=== PATIENT | female | born 1940 | race Caucasian/White ===

== ENCOUNTER 2018-07-28 13:24 | Inpatient (IN) ==
[2018-07-28] MEDS ORDERED: ALBUTEROL/IPRATROPIUM 3 ML NEB RESP TX STA (14:29)
[2018-07-28] MEDS ORDERED: SODIUM CHLORIDE 0.9% 500 ML IV STA (14:29)
[2018-07-28] MEDS ORDERED: methylPREDNISolone SOD SUC 125 MG/2 ML VIAL IV STA (14:29)
[2018-07-28] MEDS ORDERED: LEVOFLOXACIN 750 MG TABLET PO STA (14:29)
[2018-07-28 14:51] LABS: Albumin 3.3 G/DL (3.4-5.0); Bilirubin,Total 0.6 MG/DL (0.2-1.0); Calcium 8.8 MG/DL (8.5-10.1); Osmolality,Calculated 231.9 MOS/KG (273-304); Potassium 3.8 MMOL/L (3.5-5.1); Total Protein 7.9 G/DL (6.4-8.3)
[2018-07-28 15:12] LABS: Basophils % 0.3 % (0.0-0.8); Eosinophils % 0.1 % (0.00-10.9); Hematocrit 41.6 VOL% (35.7-47.0); Hemoglobin 14.3 GM/DL (12.0-16.0); Immature Granulocytes % 0.8 %; Immature Granulocytes Absolute 0.08 #; Lymphocytes % 9.5 % (21.3-54.2); Mean Corpuscular HGB Conc 34.4 GM/DL (32-36); Mean Corpuscular Hemoglobin 30 PG (27-34); Mean Corpuscular Volume 85.8 FL (87-102); Mean Platelet Volume 8.9 FL (9.6-12.0); Monocytes # 0.6 10*3/uL (0.11-0.8); Monocytes % 5.7 % (1.7-12.7); Neutrophils # 8.6 10*3/uL (1.4-7.4); Neutrophils % 83.6 % (38.7-73.9); Platelet Count 395 T/CUMM (130-400); Red Blood Count 4.85 MC/CUMM (3.8-5.5); Red Cell Distribution Width 11.6 % (9.3-17.3); White Blood Count 10.2 T/CUMM (4-12)
[2018-07-28] MEDS ORDERED: LEVOFLOXACIN INJ 750 MG in PREMIX 1 EACH IV STA (15:27)
[2018-07-28] MEDS ORDERED: ACETAMINOPHEN 325 MG TABLET PO PRN (16:20)
[2018-07-28] MEDS ORDERED: ALBUTEROL 2.5 MG/3 ML NEB RESP TX PRN (16:23)
[2018-07-28 16:25] LABS: Platelet Estimate Normal
[2018-07-28] MEDS ORDERED: ENOXAPARIN 30 MG/0.3 ML SYRINGE SUBCUT SCH (16:30)
[2018-07-28 16:53] LABS: ABG Base Excess 1.2 MMOL/L (-2.5-2.5); ABG HCO3 25.3 MMOL/L (20-26); ABG Oxygen Saturation 91.6 % (95-100); ABG PH 7.335 (7.35-7.45); ABG PO2 63.3 MM HG (80-95); ABG TCO2 24.7 MMOL/L (23-27)
[2018-07-28 16:57] LABS: Thyroid Stimulating Hormone 1.71 uIU/ml (0.358-3.74)
[2018-07-28] MEDS ORDERED: MAGNESIUM SULF RIDER 4 GM in PREMIX 1 EACH IV ONE (18:06)
[2018-07-28] MEDS: methylPREDNISolone SOD SUC 40 MG/1 ML VIAL IV SCH (18:32)
[2018-07-28] MEDS: LEVOFLOXACIN INJ 500 MG in PREMIX 1 EACH IV SCH (18:32)
[2018-07-28] MEDS: SODIUM CHLORIDE 0.9% 1,000 ML IV SCH (18:33)
[2018-07-28] MEDS: hydrALAZINE 20 MG/1 ML VIAL IV PRN (19:32)
[2018-07-28] MEDS: ALBUTEROL/IPRATROPIUM 3 ML NEB RESP TX SCH (19:45)
[2018-07-28] MEDS: BUDESONIDE 0.5 MG/2 ML NEB RESP TX SCH (19:45)
[2018-07-28] MEDS: NICOTINE 21 MG/24 HR PATCH TRANSDERM SCH (20:42)
[2018-07-28] MEDS: TERAZOSIN 2 MG CAPSULE PO SCH (20:44)
[2018-07-28] MEDS: guaiFENesin/DM ER 600-30 MG TABLET PO SCH (20:44)
[2018-07-28] MEDS: CHOLECALCIFEROL 1,000 UNIT TABLET PO SCH (20:44)
[2018-07-28] MEDS: LOSARTAN 50 MG TABLET PO SCH (20:45)
[2018-07-28] MEDS: NEBIVOLOL 5 MG TABLET PO SCH (20:45)
[2018-07-28] MEDS ORDERED: buPROPion 100 MG TABLET PO SCH (21:00)
[2018-07-28] MEDS: CLORAZEPATE 3.75 MG TABLET PO PRN (21:35)
[2018-07-28] MEDS: PIPERACILLIN/TAZOBACTAM 3,375 MG in SODIUM CHLORIDE 0.9% 100 ML IV SCH (23:11)
[2018-07-29] MEDS: methylPREDNISolone SOD SUC 40 MG/1 ML VIAL IV SCH ×4 (00:52→23:39)
[2018-07-29] MEDS: ALBUTEROL/IPRATROPIUM 3 ML NEB RESP TX SCH ×4 (01:22→19:08)
[2018-07-29 04:47] LABS: Hemoglobin 12.6 GM/DL (12.0-16.0); Immature Granulocytes % 0.5 %; Immature Granulocytes Absolute 0.03 #; Lymphocytes # 0.5 10*3/uL (1.4-4.0); Lymphocytes % 7.4 % (21.3-54.2); Mean Corpuscular HGB Conc 33.2 GM/DL (32-36); Mean Corpuscular Hemoglobin 28 PG (27-34); Mean Corpuscular Volume 85.8 FL (87-102); Mean Platelet Volume 8.2 FL (9.6-12.0); Monocytes # 0.1 10*3/uL (0.11-0.8); Monocytes % 1.4 % (1.7-12.7); Neutrophils # 5.9 10*3/uL (1.4-7.4); Neutrophils % 90.7 % (38.7-73.9); Platelet Count 294 T/CUMM (130-400); Red Blood Count 4.43 MC/CUMM (3.8-5.5); Red Cell Distribution Width 11.5 % (9.3-17.3); White Blood Count 6.5 T/CUMM (4-12)
[2018-07-29 05:04] LABS: Albumin 2.8 G/DL (3.4-5.0); Bilirubin,Total 0.4 MG/DL (0.2-1.0); Calcium 8.5 MG/DL (8.5-10.1); Osmolality,Calculated 237.5 MOS/KG (273-304); Potassium 4.1 MMOL/L (3.5-5.1); Risk Ratio 2.28; Total Protein 6.5 G/DL (6.4-8.3); VLDL CHOLESTEROL 10.4 MG/DL
[2018-07-29 05:15] LABS: Band Neutrophils 1 % (0-10); Lymphocytes 13 % (20-55); Platelet Estimate Normal; Polychromasia Few; Reactive Lymphocytes 2+; Segmented Neutrophils 84 % (50-85); Total Cells Counted 100
[2018-07-29] MEDS: PIPERACILLIN/TAZOBACTAM 3,375 MG in SODIUM CHLORIDE 0.9% 100 ML IV SCH ×3 (06:35→23:41)
[2018-07-29] MEDS: BUDESONIDE 0.5 MG/2 ML NEB RESP TX SCH ×2 (07:35→19:08)
[2018-07-29] MEDS: guaiFENesin/DM ER 600-30 MG TABLET PO SCH ×2 (08:34→21:25)
[2018-07-29] MEDS: hydrALAZINE 20 MG/1 ML VIAL IV PRN (08:34)
[2018-07-29] MEDS: NICOTINE 21 MG/24 HR PATCH TRANSDERM SCH (08:34)
[2018-07-29] MEDS ORDERED: Finasteride [Propecia] 1 MG PO SCH (09:00)
[2018-07-29] MEDS ORDERED: NISOLDIPINE 8.5 MG PO SCH (09:00)
[2018-07-29] MEDS ORDERED: buPROPion SR 150 MG TABLET PO SCH (09:00)
[2018-07-29] MEDS ORDERED: FUROSEMIDE 40 MG/4 ML VIAL IV ONE (11:14)
[2018-07-29 13:56] LABS: Apearance,Urine CLEAR (Clear); Bilirubin,Urine Negative (Negative); Blood, Urine Negative (Negative); Glucose,Urine (UA) Negative (Negative); Hyaline Casts,Urine 4 /LPF (0-3); Ketones,Urine Negative (Negative); Mucus,Urine Occasional /LPF (Occasional); Nitrite,Urine Negative (Negative); Protein,Urine 30 MG/DL; RBC,Urine 1 /HPF (0-4); Squamous Epithelial Cell,Urine Occasional /HPF (0-10); Urine Color Yellow (Yellow); Urine Specific Gravity 1.028 (1.001-1.035); Urine Urobilinogen < 2.0 EU/DL (0.2-1.0); WBC,Urine 1 /HPF (0-6)
[2018-07-29] MEDS: ENOXAPARIN 40 MG/0.4 ML SYRINGE SUBCUT SCH (15:39)
[2018-07-29] MEDS: LEVOFLOXACIN INJ 500 MG in PREMIX 1 EACH IV SCH (15:39)
[2018-07-29] MEDS: NEBIVOLOL 5 MG TABLET PO SCH (21:19)
[2018-07-29] MEDS: LOSARTAN 50 MG TABLET PO SCH (21:21)
[2018-07-29] MEDS: BENZONATATE 100 MG CAPSULE PO SCH (21:22)
[2018-07-29] MEDS: TERAZOSIN 2 MG CAPSULE PO SCH (21:24)
[2018-07-29] MEDS: CHOLECALCIFEROL 1,000 UNIT TABLET PO SCH (21:25)
[2018-07-30] MEDS: ALBUTEROL/IPRATROPIUM 3 ML NEB RESP TX SCH ×4 (02:07→19:35)
[2018-07-30 05:40] LABS: Basophils % 0.1 % (0.0-0.8); Hematocrit 35.6 VOL% (35.7-47.0); Hemoglobin 11.9 GM/DL (12.0-16.0); Immature Granulocytes % 0.6 %; Immature Granulocytes Absolute 0.06 #; Lymphocytes # 0.5 10*3/uL (1.4-4.0); Lymphocytes % 4.8 % (21.3-54.2); Mean Corpuscular HGB Conc 33.4 GM/DL (32-36); Mean Corpuscular Hemoglobin 29 PG (27-34); Mean Corpuscular Volume 86.4 FL (87-102); Mean Platelet Volume 8.5 FL (9.6-12.0); Monocytes # 0.4 10*3/uL (0.11-0.8); Monocytes % 4.2 % (1.7-12.7); Neutrophils # 8.7 10*3/uL (1.4-7.4); Neutrophils % 90.3 % (38.7-73.9); Platelet Count 343 T/CUMM (130-400); Red Blood Count 4.12 MC/CUMM (3.8-5.5); White Blood Count 9.6 T/CUMM (4-12)
[2018-07-30] MEDS: PIPERACILLIN/TAZOBACTAM 3,375 MG in SODIUM CHLORIDE 0.9% 100 ML IV SCH ×3 (06:06→23:38)
[2018-07-30 06:07] LABS: Band Neutrophils 3 % (0-10); Hypochromasia 1+; Lymphocytes 6 % (20-55); Platelet Estimate Adequate; Segmented Neutrophils 84 % (50-85); Total Cells Counted 100
[2018-07-30 06:09] LABS: Albumin 2.8 G/DL (3.4-5.0); Bilirubin,Total 0.5 MG/DL (0.2-1.0); Osmolality,Calculated 247.9 MOS/KG (273-304); Total Protein 6.2 G/DL (6.4-8.3)
[2018-07-30] MEDS: BUDESONIDE 0.5 MG/2 ML NEB RESP TX SCH ×2 (07:00→19:35)
[2018-07-30] MEDS ORDERED: MAGNESIUM SULF RIDER 2 GM in PREMIX 1 EACH IV ONE (07:03)
[2018-07-30] MEDS ORDERED: FUROSEMIDE 40 MG/4 ML VIAL IV ONE (08:22)
[2018-07-30] MEDS: SODIUM CHLORIDE 0.9% 1,000 ML IV SCH (08:45)
[2018-07-30] MEDS: NICOTINE 21 MG/24 HR PATCH TRANSDERM SCH (09:06)
[2018-07-30] MEDS: methylPREDNISolone SOD SUC 40 MG/1 ML VIAL IV SCH ×3 (09:06→23:32)
[2018-07-30] MEDS: BENZONATATE 100 MG CAPSULE PO SCH ×3 (09:07→20:16)
[2018-07-30] MEDS: guaiFENesin/DM ER 600-30 MG TABLET PO SCH ×2 (09:07→20:16)
[2018-07-30] MEDS: ENOXAPARIN 40 MG/0.4 ML SYRINGE SUBCUT SCH (16:33)
[2018-07-30] MEDS: LEVOFLOXACIN INJ 500 MG in PREMIX 1 EACH IV SCH (16:33)
[2018-07-30] MEDS: NEBIVOLOL 5 MG TABLET PO SCH (20:16)
[2018-07-30] MEDS: CHOLECALCIFEROL 1,000 UNIT TABLET PO SCH (20:16)
[2018-07-30] MEDS: LOSARTAN 50 MG TABLET PO SCH (20:16)
[2018-07-30] MEDS: TERAZOSIN 2 MG CAPSULE PO SCH (20:16)
[2018-07-31] MEDS: CLORAZEPATE 3.75 MG TABLET PO PRN ×2 (00:22→21:12)
[2018-07-31] MEDS: ALBUTEROL/IPRATROPIUM 3 ML NEB RESP TX SCH ×4 (01:25→18:50)
[2018-07-31 05:11] LABS: Hematocrit 37.8 VOL% (35.7-47.0); Hemoglobin 12.3 GM/DL (12.0-16.0); Immature Granulocytes % 0.7 %; Immature Granulocytes Absolute 0.07 #; Lymphocytes # 0.4 10*3/uL (1.4-4.0); Lymphocytes % 3.9 % (21.3-54.2); Mean Corpuscular HGB Conc 32.5 GM/DL (32-36); Mean Corpuscular Hemoglobin 29 PG (27-34); Mean Corpuscular Volume 88.9 FL (87-102); Mean Platelet Volume 8.3 FL (9.6-12.0); Monocytes # 0.4 10*3/uL (0.11-0.8); Monocytes % 4.2 % (1.7-12.7); Neutrophils % 91.2 % (38.7-73.9); Platelet Count 350 T/CUMM (130-400); Red Blood Count 4.25 MC/CUMM (3.8-5.5); Red Cell Distribution Width 12.2 % (9.3-17.3); White Blood Count 9.9 T/CUMM (4-12)
[2018-07-31 05:32] LABS: Band Neutrophils 4 % (0-10); Lymphocytes 5 % (20-55); Metamyelocytes 2 %; Platelet Estimate Normal; Segmented Neutrophils 87 % (50-85); Total Cells Counted 100
[2018-07-31 05:37] LABS: Albumin 2.8 G/DL (3.4-5.0); Bilirubin,Total 0.6 MG/DL (0.2-1.0); Osmolality,Calculated 248.9 MOS/KG (273-304); Potassium 4.3 MMOL/L (3.5-5.1)
[2018-07-31] MEDS: PIPERACILLIN/TAZOBACTAM 3,375 MG in SODIUM CHLORIDE 0.9% 100 ML IV SCH ×3 (06:00→23:17)
[2018-07-31] MEDS: BUDESONIDE 0.5 MG/2 ML NEB RESP TX SCH ×2 (08:25→18:50)
[2018-07-31] MEDS: methylPREDNISolone SOD SUC 40 MG/1 ML VIAL IV SCH ×2 (09:45→17:07)
[2018-07-31] MEDS: guaiFENesin/DM ER 600-30 MG TABLET PO SCH ×2 (09:45→21:20)
[2018-07-31] MEDS: BENZONATATE 100 MG CAPSULE PO SCH ×3 (09:45→21:19)
[2018-07-31] MEDS: NICOTINE 21 MG/24 HR PATCH TRANSDERM SCH (09:46)
[2018-07-31] MEDS: MAGNESIUM CHLORIDE 64 MG TABLET PO SCH (09:52)
[2018-07-31] MEDS: ENOXAPARIN 40 MG/0.4 ML SYRINGE SUBCUT SCH (17:07)
[2018-07-31] MEDS: LEVOFLOXACIN 500 MG TABLET PO SCH (17:07)
[2018-07-31] MEDS: MELATONIN 3 MG TABLET PO SCH (21:12)
[2018-07-31] MEDS: NEBIVOLOL 5 MG TABLET PO SCH (21:17)
[2018-07-31] MEDS: TERAZOSIN 2 MG CAPSULE PO SCH (21:18)
[2018-07-31] MEDS: LOSARTAN 50 MG TABLET PO SCH (21:19)
[2018-07-31] MEDS: CHOLECALCIFEROL 1,000 UNIT TABLET PO SCH (21:21)
[2018-08-01] MEDS: ALBUTEROL/IPRATROPIUM 3 ML NEB RESP TX SCH ×4 (00:35→19:22)
[2018-08-01] MEDS: methylPREDNISolone SOD SUC 40 MG/1 ML VIAL IV SCH ×2 (00:52→09:52)
[2018-08-01 03:42] LABS: Hematocrit 38.3 VOL% (35.7-47.0); Hemoglobin 12.5 GM/DL (12.0-16.0); Mean Corpuscular HGB Conc 32.6 GM/DL (32-36); Mean Corpuscular Hemoglobin 29 PG (27-34); Mean Corpuscular Volume 88.5 FL (87-102); Red Blood Count 4.33 MC/CUMM (3.8-5.5); White Blood Count 8.2 T/CUMM (4-12)
[2018-08-01 03:43] LABS: Basophils % 0.1 % (0.0-0.8); Immature Granulocytes % 0.9 %; Immature Granulocytes Absolute 0.07 #; Lymphocytes # 0.4 10*3/uL (1.4-4.0); Lymphocytes % 4.9 % (21.3-54.2); Mean Platelet Volume 8.2 FL (9.6-12.0); Monocytes # 0.5 10*3/uL (0.11-0.8); Monocytes % 5.7 % (1.7-12.7); Neutrophils # 7.3 10*3/uL (1.4-7.4); Neutrophils % 88.4 % (38.7-73.9); Platelet Count 344 T/CUMM (130-400)
[2018-08-01 04:04] LABS: Albumin 2.7 G/DL (3.4-5.0); Bilirubin,Total 0.4 MG/DL (0.2-1.0); Osmolality,Calculated 248.9 MOS/KG (273-304); Potassium 4.5 MMOL/L (3.5-5.1); Total Protein 5.8 G/DL (6.4-8.3)
[2018-08-01 04:34] LABS: Band Neutrophils 1 % (0-10); Hypochromasia 1+; Lymphocytes 3 % (20-55); Platelet Estimate Adequate; Segmented Neutrophils 92 % (50-85); Total Cells Counted 100
[2018-08-01] MEDS: PIPERACILLIN/TAZOBACTAM 3,375 MG in SODIUM CHLORIDE 0.9% 100 ML IV SCH ×3 (06:27→22:44)
[2018-08-01] MEDS: BUDESONIDE 0.5 MG/2 ML NEB RESP TX SCH ×2 (07:10→19:22)
[2018-08-01] MEDS: MAGNESIUM CHLORIDE 64 MG TABLET PO SCH (09:50)
[2018-08-01] MEDS: BENZONATATE 100 MG CAPSULE PO SCH ×3 (09:51→20:40)
[2018-08-01] MEDS: NICOTINE 21 MG/24 HR PATCH TRANSDERM SCH (09:51)
[2018-08-01] MEDS: guaiFENesin/DM ER 600-30 MG TABLET PO SCH ×2 (09:52→20:40)
[2018-08-01] MEDS: busPIRone 5 MG TABLET PO SCH ×2 (12:12→20:38)
[2018-08-01] MEDS: LEVOFLOXACIN 500 MG TABLET PO SCH (16:13)
[2018-08-01] MEDS: ENOXAPARIN 40 MG/0.4 ML SYRINGE SUBCUT SCH (16:14)
[2018-08-01] MEDS ORDERED: BISACODYL 10 MG SUPP RECTAL PRN (18:34)
[2018-08-01] MEDS: hydrALAZINE 25 MG TABLET PO SCH (20:38)
[2018-08-01] MEDS: TERAZOSIN 2 MG CAPSULE PO SCH (20:40)
[2018-08-01] MEDS: MELATONIN 3 MG TABLET PO SCH (20:40)
[2018-08-01] MEDS: LOSARTAN 50 MG TABLET PO SCH (20:40)
[2018-08-01] MEDS: NEBIVOLOL 5 MG TABLET PO SCH (20:40)
[2018-08-01] MEDS: CHOLECALCIFEROL 1,000 UNIT TABLET PO SCH (20:45)
[2018-08-02] MEDS: ALBUTEROL/IPRATROPIUM 3 ML NEB RESP TX SCH ×3 (00:39→14:00)
[2018-08-02] MEDS: BUDESONIDE 0.5 MG/2 ML NEB RESP TX SCH (07:20)
[2018-08-02] MEDS: PIPERACILLIN/TAZOBACTAM 3,375 MG in SODIUM CHLORIDE 0.9% 100 ML IV SCH (07:27)
[2018-08-02] MEDS: MAGNESIUM CHLORIDE 64 MG TABLET PO SCH (08:46)
[2018-08-02] MEDS: BENZONATATE 100 MG CAPSULE PO SCH (08:47)
[2018-08-02] MEDS: hydrALAZINE 25 MG TABLET PO SCH (08:47)
[2018-08-02] MEDS: guaiFENesin/DM ER 600-30 MG TABLET PO SCH (08:47)
[2018-08-02] MEDS: NICOTINE 21 MG/24 HR PATCH TRANSDERM SCH (08:49)
[2018-08-02] MEDS: busPIRone 5 MG TABLET PO SCH (08:49)
[2018-08-02] MEDS ORDERED: DOCUSATE SODIUM 100 MG CAPSULE PO SCH ×2 (09:00→21:00)
[2018-08-02] MEDS ORDERED: predniSONE 20 MG TABLET PO SCH (09:00)
[2018-08-02 12:27] VITALS: BP 167/82
[2018-08-03] MEDS ORDERED: POLYETHYLENE GLYCOL POWDER 17 GM PACK PO SCH (09:00)
== END 2018-08-02 14:40 | disposition home or self-care (01) | DRG 190 ==
LOC: N.ED 13:24 → N.EDINP 16:20 → N.4E 16:51
PROVIDERS: ADMIT Hospitalist; ATTEND Hospitalist

== ENCOUNTER 2019-09-13 08:19 | Inpatient (IN) ==
[2019-09-13] MEDS ORDERED: cefTRIAXone 1,000 MG in SODIUM CHLORIDE 0.9% 100 ML IV STA (08:31)
[2019-09-13] MEDS ORDERED: methylPREDNISolone SOD SUC 125 MG/2 ML VIAL IV STA (08:31)
[2019-09-13] MEDS ORDERED: FUROSEMIDE 40 MG/4 ML VIAL IV STA (08:53)
[2019-09-13] MEDS ORDERED: ALBUTEROL 2.5 MG/3 ML NEB RESP TX SCH (09:00)
[2019-09-13 09:11] LABS: Basophils % 0.4 % (0.0-0.8); Eosinophils % 0.1 % (0.00-10.9); Hematocrit 44.4 VOL% (35.7-47.0); Hemoglobin 15.3 GM/DL (12.0-16.0); Immature Granulocytes % 1.1 %; Immature Granulocytes Absolute 0.12 #; Lymphocytes # 1.2 10*3/uL (1.4-4.0); Lymphocytes % 10.7 % (21.3-54.2); Mean Corpuscular HGB Conc 34.5 GM/DL (32-36); Mean Corpuscular Volume 87.4 FL (87-102); Mean Platelet Volume 8.7 FL (9.6-12.0); Monocytes % 7.9 % (1.7-12.7); Neutrophils % 79.8 % (38.7-73.9); Platelet Count 241 T/CUMM (130-400); Red Blood Count 5.08 MC/CUMM (3.8-5.5); Red Cell Distribution Width 11.5 % (9.3-17.3); White Blood Count 10.9 T/CUMM (4-12)
[2019-09-13 09:14] LABS: ABG HCO3 28.2 MMOL/L (20-26); ABG PCO2 66.6 MM HG (35-48); ABG PH 7.245 (7.35-7.45); ABG PO2 93.6 MM HG (80-95); ABG TCO2 30.3 MMOL/L (23-27)
[2019-09-13 09:20] LABS: PT Patient Result 10.6 SECS (9.6-12.2); Partial Thromboplastin Time 27.8 SECS (20.8-36.0)
[2019-09-13] MEDS ORDERED: ONDANSETRON 4 MG/2 ML VIAL IV STA (09:26)
[2019-09-13 09:39] LABS: Albumin 3.6 G/DL (3.4-5.0); Bilirubin,Total 0.8 MG/DL (0.2-1.0); Osmolality,Calculated 238.5 MOS/KG (273-304); Total Protein 6.5 G/DL (6.4-8.3)
[2019-09-13] MEDS ORDERED: ACETAMINOPHEN 325 MG TABLET PO PRN (10:48)
[2019-09-13 11:04] LABS: Apearance,Urine CLEAR (Clear); Bacteria,Urine Moderate /HPF (Few); Bilirubin,Urine Negative (Negative); Blood, Urine Small mg/dL (Negative); Glucose,Urine (UA) Negative (Negative); Ketones,Urine 20 mg/dL (Negative); Nitrite,Urine Negative (Negative); Protein,Urine 100 MG/DL; RBC,Urine 1 /HPF (0-4); Squamous Epithelial Cell,Urine Occasional /HPF (0-10); Urine Color Yellow (Yellow); Urine Specific Gravity 1.009 (1.001-1.035); Urine Urobilinogen < 2.0 EU/DL (0.2-1.0)
[2019-09-13] MEDS: ALBUTEROL/IPRATROPIUM 3 ML NEB RESP TX SCH ×4 (11:40→23:06)
[2019-09-13] MEDS: AZITHROMYCIN INJ 500 MG in SODIUM CHLORIDE 0.9% 250 ML IV SCH (12:35)
[2019-09-13] MEDS: ENOXAPARIN 40 MG/0.4 ML SYRINGE SUBCUT SCH (12:35)
[2019-09-13] MEDS: SODIUM CHLORIDE 0.9% 1,000 ML IV SCH (13:57)
[2019-09-13] MEDS ORDERED: methylPREDNISolone SOD SUC 40 MG/1 ML VIAL IV SCH (17:00)
[2019-09-13] MEDS: methylPREDNISolone SOD SUC 40 MG/1 ML VIAL IV SCH ×2 (17:53→22:02)
[2019-09-13] MEDS: NICOTINE 21 MG/24 HR PATCH TRANSDERM SCH (17:53)
[2019-09-13] MEDS: LOSARTAN 50 MG TABLET PO SCH (21:44)
[2019-09-13] MEDS: CHOLECALCIFEROL 1,000 UNIT TABLET PO SCH (21:44)
[2019-09-13] MEDS: NEBIVOLOL 5 MG TABLET PO SCH (21:45)
[2019-09-13] MEDS: amLODIPine 10 MG TABLET PO SCH (21:45)
[2019-09-13] MEDS: Finasteride [Propecia] 1 MG PO SCH (21:45)
[2019-09-14] MEDS: SODIUM CHLORIDE 0.9% 1,000 ML IV SCH ×4 (02:51→19:30)
[2019-09-14 03:02] LABS: Basophils % 0.1 % (0.0-0.8); Hematocrit 42.7 VOL% (35.7-47.0); Hemoglobin 14.3 GM/DL (12.0-16.0); Immature Granulocytes % 0.7 %; Immature Granulocytes Absolute 0.05 #; Lymphocytes # 0.8 10*3/uL (1.4-4.0); Lymphocytes % 11.2 % (21.3-54.2); Mean Corpuscular HGB Conc 33.5 GM/DL (32-36); Mean Corpuscular Volume 89.5 FL (87-102); Mean Platelet Volume 8.9 FL (9.6-12.0); Monocytes % 1.6 % (1.7-12.7); Neutrophils % 86.4 % (38.7-73.9); Platelet Count 239 T/CUMM (130-400); Red Blood Count 4.77 MC/CUMM (3.8-5.5); Red Cell Distribution Width 11.6 % (9.3-17.3); White Blood Count 6.7 T/CUMM (4-12)
[2019-09-14] MEDS: ALBUTEROL/IPRATROPIUM 3 ML NEB RESP TX SCH ×5 (03:15→20:18)
[2019-09-14 03:31] LABS: Calcium 8.2 MG/DL (8.5-10.1); Osmolality,Calculated 247.9 MOS/KG (273-304)
[2019-09-14] MEDS: methylPREDNISolone SOD SUC 40 MG/1 ML VIAL IV SCH ×4 (05:49→22:18)
[2019-09-14] MEDS: cefTRIAXone 1,000 MG in SYRINGE 1 EACH IV SCH (05:51)
[2019-09-14] MEDS: NICOTINE 21 MG/24 HR PATCH TRANSDERM SCH (08:23)
[2019-09-14] MEDS: ONDANSETRON 4 MG/2 ML VIAL IV PRN (08:33)
[2019-09-14] MEDS: ENOXAPARIN 40 MG/0.4 ML SYRINGE SUBCUT SCH (11:26)
[2019-09-14] MEDS: AZITHROMYCIN INJ 500 MG in SODIUM CHLORIDE 0.9% 250 ML IV SCH (12:50)
[2019-09-14 16:40] LABS: Apearance,Urine CLEAR (Clear); Bacteria,Urine Occasional /HPF (Few); Bilirubin,Urine Negative (Negative); Blood, Urine Small mg/dL (Negative); Glucose,Urine (UA) Negative (Negative); Hyaline Casts,Urine 8 /LPF (0-3); Ketones,Urine Negative (Negative); Mucus,Urine Occasional /LPF (Occasional); Nitrite,Urine Negative (Negative); Protein,Urine Negative; RBC,Urine 25 /HPF (0-4); Squamous Epithelial Cell,Urine Occasional /HPF (0-10); Urine Color Yellow (Yellow); Urine Specific Gravity 1.012 (1.001-1.035); Urine Urobilinogen < 2.0 EU/DL (0.2-1.0); WBC,Urine 2 /HPF (0-6)
[2019-09-14] MEDS: Finasteride [Propecia] 1 MG PO SCH (20:17)
[2019-09-14] MEDS: amLODIPine 10 MG TABLET PO SCH (20:18)
[2019-09-14] MEDS: LOSARTAN 50 MG TABLET PO SCH (20:18)
[2019-09-14] MEDS: CHOLECALCIFEROL 1,000 UNIT TABLET PO SCH (20:18)
[2019-09-14] MEDS: NEBIVOLOL 5 MG TABLET PO SCH (20:18)
[2019-09-15] MEDS: ALBUTEROL/IPRATROPIUM 3 ML NEB RESP TX SCH ×6 (01:23→19:32)
[2019-09-15] MEDS: methylPREDNISolone SOD SUC 40 MG/1 ML VIAL IV SCH ×3 (05:30→21:45)
[2019-09-15] MEDS: cefTRIAXone 1,000 MG in SYRINGE 1 EACH IV SCH (05:31)
[2019-09-15] MEDS: NICOTINE 21 MG/24 HR PATCH TRANSDERM SCH ×2 (08:35→21:46)
[2019-09-15 08:42] LABS: ABG Base Excess 2.1 MMOL/L (-2.5-2.5); ABG Oxygen Saturation 89.4 % (95-100); ABG PCO2 58.9 MM HG (35-48); ABG PH 7.317 (7.35-7.45); ABG PO2 56.3 MM HG (80-95); ABG TCO2 26.3 MMOL/L (23-27); Allen Test Positive; Pt O2 Delivery Device BIPAP
[2019-09-15 09:04] LABS: Alanine Aminotransferase 26 U/L (13-56); Albumin 3.1 G/DL (3.4-5.0); Alkaline Phosphatase 110 U/L (45-117); Aspartate Amino Transferase 13 U/L (0-37); Bilirubin,Total < 0.39 MG/DL (0.2-1.0); Blood Urea Nitrogen 29 MG/DL (7-18); Calcium 8.5 MG/DL (8.5-10.1); Estimated Glom Filtration Rate 94 ML/MIN; Glucose 136 MG/DL (74-106); Osmolality,Calculated 260.4 MOS/KG (273-304); Total Protein 6.3 G/DL (6.4-8.3)
[2019-09-15] MEDS: SODIUM CHLORIDE 0.9% 1,000 ML IV SCH (11:55)
[2019-09-15] MEDS: ENOXAPARIN 40 MG/0.4 ML SYRINGE SUBCUT SCH (12:28)
[2019-09-15] MEDS: AZITHROMYCIN INJ 500 MG in SODIUM CHLORIDE 0.9% 250 ML IV SCH (12:28)
[2019-09-15] MEDS ORDERED: NICOTINE 21 MG/24 HR PATCH TRANSDERM SCH (21:00)
[2019-09-15] MEDS: CHOLECALCIFEROL 1,000 UNIT TABLET PO SCH (21:46)
[2019-09-15] MEDS: amLODIPine 10 MG TABLET PO SCH (21:46)
[2019-09-15] MEDS: NEBIVOLOL 5 MG TABLET PO SCH (21:46)
[2019-09-15] MEDS: LOSARTAN 50 MG TABLET PO SCH (21:46)
[2019-09-15] MEDS: Finasteride [Propecia] 1 MG PO SCH (21:53)
[2019-09-15] MEDS: MELATONIN 3 MG TABLET PO PRN (22:28)
[2019-09-16] MEDS: ALBUTEROL/IPRATROPIUM 3 ML NEB RESP TX SCH ×7 (00:23→23:50)
[2019-09-16] MEDS: methylPREDNISolone SOD SUC 40 MG/1 ML VIAL IV SCH ×3 (03:18→21:00)
[2019-09-16] MEDS: SODIUM CHLORIDE 0.9% 1,000 ML IV SCH ×3 (03:22→19:00)
[2019-09-16] MEDS: cefTRIAXone 1,000 MG in SYRINGE 1 EACH IV SCH (05:33)
[2019-09-16] MEDS: NICOTINE 21 MG/24 HR PATCH TRANSDERM SCH ×2 (09:26→21:04)
[2019-09-16] MEDS: ENOXAPARIN 40 MG/0.4 ML SYRINGE SUBCUT SCH (16:49)
[2019-09-16] MEDS: AZITHROMYCIN INJ 500 MG in SODIUM CHLORIDE 0.9% 250 ML IV SCH (16:50)
[2019-09-16] MEDS: NEBIVOLOL 5 MG TABLET PO SCH (21:01)
[2019-09-16] MEDS: LOSARTAN 50 MG TABLET PO SCH (21:01)
[2019-09-16] MEDS: amLODIPine 10 MG TABLET PO SCH (21:02)
[2019-09-16] MEDS: Finasteride [Propecia] 1 MG PO SCH (21:04)
[2019-09-16] MEDS: CHOLECALCIFEROL 1,000 UNIT TABLET PO SCH (21:04)
[2019-09-16] MEDS: POLYETHYLENE GLYCOL POWDER 17 GM PACK PO SCH (22:25)
[2019-09-17] MEDS: DOCUSATE SODIUM 100 MG CAPSULE PO PRN (00:01)
[2019-09-17] MEDS: SODIUM CHLORIDE 0.9% 1,000 ML IV SCH ×2 (00:02→22:24)
[2019-09-17] MEDS: ONDANSETRON 4 MG/2 ML VIAL IV PRN (00:02)
[2019-09-17] MEDS: ALBUTEROL/IPRATROPIUM 3 ML NEB RESP TX SCH ×6 (03:50→23:04)
[2019-09-17] MEDS: methylPREDNISolone SOD SUC 40 MG/1 ML VIAL IV SCH ×3 (04:17→20:58)
[2019-09-17] MEDS: cefTRIAXone 1,000 MG in SYRINGE 1 EACH IV SCH (05:40)
[2019-09-17] MEDS: NICOTINE 21 MG/24 HR PATCH TRANSDERM SCH ×2 (08:28→20:57)
[2019-09-17] MEDS: POLYETHYLENE GLYCOL POWDER 17 GM PACK PO SCH (08:29)
[2019-09-17] MEDS ORDERED: methylPREDNISolone SOD SUC 125 MG/2 ML VIAL IV SCH (08:30)
[2019-09-17] MEDS: AZITHROMYCIN INJ 500 MG in SODIUM CHLORIDE 0.9% 250 ML IV SCH (12:25)
[2019-09-17] MEDS: ENOXAPARIN 40 MG/0.4 ML SYRINGE SUBCUT SCH (12:29)
[2019-09-17] MEDS: amLODIPine 10 MG TABLET PO SCH (20:58)
[2019-09-17] MEDS: CHOLECALCIFEROL 1,000 UNIT TABLET PO SCH (20:58)
[2019-09-17] MEDS: NEBIVOLOL 5 MG TABLET PO SCH (20:59)
[2019-09-17] MEDS: LOSARTAN 50 MG TABLET PO SCH (20:59)
[2019-09-17] MEDS: Finasteride [Propecia] 1 MG PO SCH (21:03)
[2019-09-17] MEDS: MELATONIN 3 MG TABLET PO PRN (21:19)
[2019-09-18] MEDS: DOCUSATE SODIUM 100 MG CAPSULE PO PRN ×2 (00:48→08:47)
[2019-09-18] MEDS: ALBUTEROL/IPRATROPIUM 3 ML NEB RESP TX SCH ×6 (02:33→23:05)
[2019-09-18] MEDS: cefTRIAXone 1,000 MG in SYRINGE 1 EACH IV SCH (05:45)
[2019-09-18 05:57] LABS: Basophils % 0.1 % (0.0-0.8); Hematocrit 38.7 VOL% (35.7-47.0); Hemoglobin 12.7 GM/DL (12.0-16.0); Immature Granulocytes % 1.2 %; Lymphocytes # 0.8 10*3/uL (1.4-4.0); Lymphocytes % 4.9 % (21.3-54.2); Mean Corpuscular HGB Conc 32.8 GM/DL (32-36); Mean Corpuscular Volume 90.8 FL (87-102); Mean Platelet Volume 8.7 FL (9.6-12.0); Monocytes % 4.1 % (1.7-12.7); Neutrophils % 89.7 % (38.7-73.9); Platelet Count 252 T/CUMM (130-400); Red Blood Count 4.26 MC/CUMM (3.8-5.5); Red Cell Distribution Width 11.9 % (9.3-17.3); White Blood Count 17.2 T/CUMM (4-12)
[2019-09-18 06:21] LABS: Band Neutrophils 1 % (0-10); Lymphocytes 5 % (20-55); Platelet Estimate Normal; Segmented Neutrophils 92 % (50-85); Total Cells Counted 100
[2019-09-18 06:33] LABS: Calcium 8.1 MG/DL (8.5-10.1); Osmolality,Calculated 271.7 MOS/KG (273-304)
[2019-09-18] MEDS: methylPREDNISolone SOD SUC 40 MG/1 ML VIAL IV SCH (08:38)
[2019-09-18] MEDS: POLYETHYLENE GLYCOL POWDER 17 GM PACK PO SCH (08:38)
[2019-09-18] MEDS: NICOTINE 21 MG/24 HR PATCH TRANSDERM SCH ×2 (08:38→21:07)
[2019-09-18] MEDS: predniSONE 20 MG TABLET PO SCH (10:29)
[2019-09-18] MEDS: AMOXICILLIN/CLAV 875 MG TABLET PO SCH ×2 (10:29→21:38)
[2019-09-18] MEDS: SODIUM CHLORIDE 0.9% 1,000 ML IV SCH (10:29)
[2019-09-18] MEDS: ENOXAPARIN 40 MG/0.4 ML SYRINGE SUBCUT SCH (12:51)
[2019-09-18] MEDS: CALCIUM CARBONATE CHEW 500 MG TABLET PO PRN ×2 (16:15→19:57)
[2019-09-18] MEDS ORDERED: BISACODYL 10 MG SUPP RECTAL PRN (20:07)
[2019-09-18] MEDS: LOSARTAN 50 MG TABLET PO SCH (21:03)
[2019-09-18] MEDS: NEBIVOLOL 5 MG TABLET PO SCH (21:03)
[2019-09-18] MEDS: CHOLECALCIFEROL 1,000 UNIT TABLET PO SCH (21:03)
[2019-09-18] MEDS: amLODIPine 10 MG TABLET PO SCH (21:06)
[2019-09-18] MEDS: Finasteride [Propecia] 1 MG PO SCH (21:11)
[2019-09-18] MEDS: MELATONIN 3 MG TABLET PO PRN (21:37)
[2019-09-19] MEDS: ALBUTEROL/IPRATROPIUM 3 ML NEB RESP TX SCH ×5 (03:05→20:31)
[2019-09-19 05:15] LABS: Basophils % 0.2 % (0.0-0.8); Eosinophils % 0.1 % (0.00-10.9); Hematocrit 31.9 VOL% (35.7-47.0); Hemoglobin 10.5 GM/DL (12.0-16.0); Immature Granulocytes % 1.6 %; Immature Granulocytes Absolute 0.31 #; Lymphocytes # 2.8 10*3/uL (1.4-4.0); Lymphocytes % 13.9 % (21.3-54.2); Mean Corpuscular HGB Conc 32.9 GM/DL (32-36); Mean Corpuscular Volume 91.4 FL (87-102); Mean Platelet Volume 8.7 FL (9.6-12.0); Monocytes % 8.6 % (1.7-12.7); Neutrophils % 75.6 % (38.7-73.9); Platelet Count 211 T/CUMM (130-400); Red Blood Count 3.49 MC/CUMM (3.8-5.5); Red Cell Distribution Width 11.9 % (9.3-17.3); White Blood Count 19.9 T/CUMM (4-12)
[2019-09-19 05:36] LABS: Calcium 7.8 MG/DL (8.5-10.1); Osmolality,Calculated 270.7 MOS/KG (273-304)
[2019-09-19] MEDS: SODIUM CHLORIDE 0.9% 1,000 ML IV SCH (09:03)
[2019-09-19] MEDS ORDERED: predniSONE 10 MG TABLET ONE (09:15)
[2019-09-19] MEDS: NICOTINE 21 MG/24 HR PATCH TRANSDERM SCH ×2 (09:30→22:06)
[2019-09-19] MEDS: POLYETHYLENE GLYCOL POWDER 17 GM PACK PO SCH (09:31)
[2019-09-19] MEDS: AMOXICILLIN/CLAV 875 MG TABLET PO SCH ×2 (09:31→22:13)
[2019-09-19] MEDS: predniSONE 20 MG TABLET PO SCH (09:32)
[2019-09-19] MEDS ORDERED: MAGNESIUM SULF RIDER 2 GM in PREMIX 1 EACH IV ONE (13:42)
[2019-09-19] MEDS: ENOXAPARIN 40 MG/0.4 ML SYRINGE SUBCUT SCH (14:36)
[2019-09-19] MEDS: CALCIUM CARBONATE CHEW 500 MG TABLET PO PRN ×2 (14:36→19:18)
[2019-09-19] MEDS: Finasteride [Propecia] 1 MG PO SCH (22:07)
[2019-09-19] MEDS: NEBIVOLOL 5 MG TABLET PO SCH (22:07)
[2019-09-19] MEDS: LOSARTAN 50 MG TABLET PO SCH (22:07)
[2019-09-19] MEDS: CHOLECALCIFEROL 1,000 UNIT TABLET PO SCH (22:07)
[2019-09-19] MEDS: amLODIPine 10 MG TABLET PO SCH (22:08)
[2019-09-19] MEDS: MELATONIN 3 MG TABLET PO PRN (22:13)
[2019-09-20] MEDS: ALBUTEROL/IPRATROPIUM 3 ML NEB RESP TX SCH ×4 (01:42→11:23)
[2019-09-20] MEDS: NICOTINE 21 MG/24 HR PATCH TRANSDERM SCH (09:37)
[2019-09-20] MEDS: predniSONE 20 MG TABLET PO SCH (09:38)
[2019-09-20] MEDS: POLYETHYLENE GLYCOL POWDER 17 GM PACK PO SCH (09:38)
[2019-09-20] MEDS: AMOXICILLIN/CLAV 875 MG TABLET PO SCH (09:38)
[2019-09-20] MEDS: ENOXAPARIN 40 MG/0.4 ML SYRINGE SUBCUT SCH (11:43)
[2019-09-20 12:21] VITALS: BP 126/58
== END 2019-09-20 13:18 | disposition home or self-care (01) | DRG 189 ==
LOC: N.ED 08:19 → SUATTDRO 10:48 → N.EDINP 10:48 → N.4E 12:23 → N.ICU 19:02 → N.TELES 09-15 16:41
PROVIDERS: ADMIT Emergency Medicine; ATTEND Family Medicine

== ENCOUNTER 2019-09-28 01:44 | Inpatient (IN) ==
[2019-09-28] MEDS ORDERED: SODIUM CHLORIDE 0.9% 1,000 ML IV STA (02:38)
[2019-09-28] MEDS ORDERED: PANTOPRAZOLE 40 MG VIAL IV STA ×2 (02:39→03:40)
[2019-09-28 02:46] LABS: Basophils % 0.1 % (0.0-0.8); Eosinophils # 0.1 10*3/uL (0.0-0.87); Eosinophils % 0.7 % (0.00-10.9); Immature Granulocytes % 1.1 %; Immature Granulocytes Absolute 0.13 #; Lymphocytes # 0.9 10*3/uL (1.4-4.0); Lymphocytes % 7.8 % (21.3-54.2); Mean Corpuscular HGB Conc 30.1 GM/DL (32-36); Mean Platelet Volume 8.8 FL (9.6-12.0); Neutrophils % 84.3 % (38.7-73.9); Platelet Count 324 T/CUMM (130-400); Red Blood Count 1.66 MC/CUMM (3.8-5.5); Red Cell Distribution Width 12.8 % (9.3-17.3)
[2019-09-28 02:57] LABS: Alanine Aminotransferase 25 U/L (13-56); Albumin 2.2 G/DL (3.4-5.0); Alkaline Phosphatase 62 U/L (45-117); Aspartate Amino Transferase 14 U/L (0-37); Bilirubin,Total < 0.39 MG/DL (0.2-1.0); Blood Urea Nitrogen 28 MG/DL (7-18); Calcium 7.6 MG/DL (8.5-10.1); Estimated Glom Filtration Rate 94 ML/MIN; Glucose 182 MG/DL (74-106); Osmolality,Calculated 283.8 MOS/KG (273-304); Total Protein 4.6 G/DL (6.4-8.3)
[2019-09-28 03:11] LABS: Hematocrit 16.6 VOL% (35.7-47.0)
[2019-09-28] MEDS ORDERED: SODIUM CHLORIDE 0.9% 1,000 ML IV PRN ×2 (03:20→04:03)
[2019-09-28] MEDS ORDERED: CALCIUM GLUCONATE 1,000 MG in SODIUM CHLORIDE 0.9% 100 ML IV ONE ×2 (03:21→04:00)
[2019-09-28] MEDS ORDERED: ONDANSETRON 4 MG/2 ML VIAL IV PRN (03:54)
[2019-09-28] MEDS ORDERED: ALBUTEROL 2.5 MG/3 ML NEB RESP TX PRN (03:54)
[2019-09-28] MEDS ORDERED: PANTOPRAZOLE INJ 200 MG in SODIUM CHLORIDE 0.9% 250 ML IV SCH (04:00)
[2019-09-28] MEDS ORDERED: FUROSEMIDE 40 MG/4 ML VIAL IV ONE ×2 (07:30→13:00)
[2019-09-28 08:00] LABS: Apearance,Urine CLEAR (Clear); Bacteria,Urine Occasional /HPF (Few); Bilirubin,Urine Negative (Negative); Blood, Urine Large mg/dL (Negative); Glucose,Urine (UA) Negative (Negative); Ketones,Urine 5 mg/dL (Negative); Mucus,Urine Occasional /LPF (Occasional); Nitrite,Urine Negative (Negative); Protein,Urine Negative; RBC,Urine 4 /HPF (0-4); Squamous Epithelial Cell,Urine Occasional /HPF (0-10); Urine Color Straw (Yellow); Urine Urobilinogen < 2.0 EU/DL (0.2-1.0); WBC,Urine 3 /HPF (0-6)
[2019-09-28] MEDS ORDERED: NICOTINE 21 MG/24 HR PATCH TRANSDERM SCH (09:00)
[2019-09-28] MEDS ORDERED: LIDOCAINE 2% 5 ML VIAL ONE (10:00)
[2019-09-28] MEDS ORDERED: ETOMIDATE 20 MG/10 ML VIAL IV ONE (10:00)
[2019-09-28] MEDS ORDERED: PROPOFOL 200 MG/20 ML VIAL IV ONE (10:00)
[2019-09-28] MEDS ORDERED: LACTATED RINGERS 1,000 ML IV SCH (10:30)
[2019-09-28 10:53] LABS: Hematocrit 22.5 VOL% (35.7-47.0)
[2019-09-28 11:01] LABS: Hemoglobin 7.5 GM/DL (12.0-16.0)
[2019-09-28] MEDS: PANTOPRAZOLE 40 MG VIAL IV SCH ×2 (15:36→21:01)
[2019-09-28] MEDS: SUCRALFATE 1 GM TABLET PO SCH ×2 (17:23→21:01)
[2019-09-28 18:40] LABS: Hemoglobin 9.4 GM/DL (12.0-16.0)
[2019-09-28 22:19] LABS: Hematocrit 25.8 VOL% (35.7-47.0); Hemoglobin 8.9 GM/DL (12.0-16.0)
[2019-09-29 06:19] LABS: Hematocrit 25.6 VOL% (35.7-47.0); Hemoglobin 8.7 GM/DL (12.0-16.0)
[2019-09-29 06:45] LABS: Calcium 7.9 MG/DL (8.5-10.1); Osmolality,Calculated 273.8 MOS/KG (273-304)
[2019-09-29] MEDS: NICOTINE 14 MG/24 HR PATCH TRANSDERM SCH (09:01)
[2019-09-29] MEDS: PANTOPRAZOLE 40 MG VIAL IV SCH ×2 (09:01→21:59)
[2019-09-29] MEDS: SUCRALFATE 1 GM TABLET PO SCH ×4 (09:01→21:42)
[2019-09-29] MEDS ORDERED: ALBUTEROL/IPRATROPIUM 3 ML NEB RESP TX PRN ×2 (11:04→11:26)
[2019-09-29] MEDS: ACETAMINOPHEN 325 MG TABLET PO PRN ×2 (11:21→21:43)
[2019-09-29 11:24] LABS: Hematocrit 25.4 VOL% (35.7-47.0); Hemoglobin 8.3 GM/DL (12.0-16.0)
[2019-09-29] MEDS ORDERED: ALBUTEROL/IPRATROPIUM 3 ML NEB RESP TX SCH (15:00)
[2019-09-29] MEDS: ALBUTEROL/IPRATROPIUM 3 ML NEB RESP TX SCH ×3 (15:25→23:44)
[2019-09-29] MEDS ORDERED: FINASTERIDE 1 MG PO SCH (21:00)
[2019-09-29] MEDS ORDERED: NON-FORMULARY MEDICATION (Losartan 100 MG) PO SCH (21:00)
[2019-09-29] MEDS ORDERED: NEBIVOLOL 2.5 MG PO SCH (21:00)
[2019-09-29] MEDS: FINASTERIDE 5 MG TABLET PO SCH (21:42)
[2019-09-29] MEDS: LOSARTAN 50 MG TABLET PO SCH (21:43)
[2019-09-29] MEDS: amLODIPine 10 MG TABLET PO SCH (21:44)
[2019-09-29] MEDS: NEBIVOLOL 5 MG TABLET PO SCH ×2 (21:44→21:54)
[2019-09-30] MEDS: ALBUTEROL/IPRATROPIUM 3 ML NEB RESP TX SCH ×6 (03:32→23:10)
[2019-09-30 05:24] LABS: Basophils % 0.3 % (0.0-0.8); Eosinophils # 0.1 10*3/uL (0.0-0.87); Eosinophils % 1.7 % (0.00-10.9); Hematocrit 22.6 VOL% (35.7-47.0); Hemoglobin 7.4 GM/DL (12.0-16.0); Immature Granulocytes % 0.8 %; Immature Granulocytes Absolute 0.05 #; Lymphocytes % 29.4 % (21.3-54.2); Mean Corpuscular HGB Conc 32.7 GM/DL (32-36); Mean Corpuscular Volume 93.8 FL (87-102); Mean Platelet Volume 8.7 FL (9.6-12.0); Monocytes % 7.5 % (1.7-12.7); Neutrophils % 60.3 % (38.7-73.9); Platelet Count 236 T/CUMM (130-400); Red Blood Count 2.41 MC/CUMM (3.8-5.5); Red Cell Distribution Width 14.3 % (9.3-17.3); White Blood Count 6.7 T/CUMM (4-12)
[2019-09-30 05:49] LABS: Calcium 7.6 MG/DL (8.5-10.1); Osmolality,Calculated 280.5 MOS/KG (273-304)
[2019-09-30] MEDS ORDERED: FUROSEMIDE 40 MG/4 ML VIAL IV PRN (07:29)
[2019-09-30] MEDS ORDERED: SODIUM CHLORIDE 0.9% 1,000 ML IV PRN (07:29)
[2019-09-30] MEDS ORDERED: MAGNESIUM SULF RIDER 4 GM in PREMIX 1 EACH IV PRN (07:37)
[2019-09-30] MEDS ORDERED: MAGNESIUM SULF RIDER 2 GM in PREMIX 1 EACH IV PRN (07:37)
[2019-09-30 08:50] LABS: Hematocrit 24.1 VOL% (35.7-47.0); Hemoglobin 7.9 GM/DL (12.0-16.0)
[2019-09-30] MEDS: amLODIPine 10 MG TABLET PO SCH ×2 (09:33→21:04)
[2019-09-30] MEDS: LOSARTAN 50 MG TABLET PO SCH ×2 (09:33→21:04)
[2019-09-30] MEDS: FINASTERIDE 5 MG TABLET PO SCH ×2 (09:34→21:04)
[2019-09-30] MEDS: SUCRALFATE 1 GM TABLET PO SCH ×4 (09:37→21:04)
[2019-09-30] MEDS: PANTOPRAZOLE 40 MG VIAL IV SCH ×2 (09:37→21:04)
[2019-09-30] MEDS: NICOTINE 14 MG/24 HR PATCH TRANSDERM SCH (09:41)
[2019-09-30 17:39] LABS: Hematocrit 23.7 VOL% (35.7-47.0); Hemoglobin 7.7 GM/DL (12.0-16.0)
[2019-09-30] MEDS: NEBIVOLOL 5 MG TABLET PO SCH (21:05)
[2019-09-30] MEDS: ACETAMINOPHEN 325 MG TABLET PO PRN (23:35)
[2019-10-01] MEDS: ALBUTEROL/IPRATROPIUM 3 ML NEB RESP TX SCH ×5 (03:10→20:02)
[2019-10-01 05:14] LABS: Basophils % 0.4 % (0.0-0.8); Eosinophils # 0.1 10*3/uL (0.0-0.87); Eosinophils % 2.7 % (0.00-10.9); Hematocrit 24.5 VOL% (35.7-47.0); Hemoglobin 7.9 GM/DL (12.0-16.0); Immature Granulocytes % 0.4 %; Immature Granulocytes Absolute 0.02 #; Lymphocytes # 1.1 10*3/uL (1.4-4.0); Lymphocytes % 23.4 % (21.3-54.2); Mean Corpuscular HGB Conc 32.2 GM/DL (32-36); Mean Corpuscular Volume 91.8 FL (87-102); Mean Platelet Volume 8.5 FL (9.6-12.0); Monocytes % 8.6 % (1.7-12.7); Neutrophils % 64.5 % (38.7-73.9); Platelet Count 204 T/CUMM (130-400); Red Blood Count 2.67 MC/CUMM (3.8-5.5); Red Cell Distribution Width 16.4 % (9.3-17.3); White Blood Count 4.8 T/CUMM (4-12)
[2019-10-01 05:58] LABS: Calcium 7.7 MG/DL (8.5-10.1)
[2019-10-01] MEDS: NICOTINE 14 MG/24 HR PATCH TRANSDERM SCH (08:59)
[2019-10-01] MEDS: PANTOPRAZOLE 40 MG VIAL IV SCH ×2 (08:59→21:09)
[2019-10-01] MEDS: SUCRALFATE 1 GM TABLET PO SCH ×4 (08:59→21:09)
[2019-10-01] MEDS ORDERED: POTASSIUM CHLORIDE 20 MEQ TABLET PO ONE (11:52)
[2019-10-01] MEDS: NEBIVOLOL 5 MG TABLET PO SCH (21:07)
[2019-10-01] MEDS: FINASTERIDE 5 MG TABLET PO SCH (21:09)
[2019-10-01] MEDS: amLODIPine 10 MG TABLET PO SCH (21:09)
[2019-10-01] MEDS: LOSARTAN 50 MG TABLET PO SCH (21:13)
[2019-10-01] MEDS: ACETAMINOPHEN 325 MG TABLET PO PRN (22:54)
[2019-10-02] MEDS: ALBUTEROL/IPRATROPIUM 3 ML NEB RESP TX SCH ×4 (00:08→11:31)
[2019-10-02 06:54] LABS: Calcium 7.8 MG/DL (8.5-10.1); Osmolality,Calculated 281.1 MOS/KG (273-304)
[2019-10-02] MEDS: NICOTINE 14 MG/24 HR PATCH TRANSDERM SCH (08:50)
[2019-10-02] MEDS: SUCRALFATE 1 GM TABLET PO SCH ×2 (08:50→12:47)
[2019-10-02] MEDS: PANTOPRAZOLE 40 MG VIAL IV SCH (08:51)
[2019-10-02 09:27] LABS: Basophils % 0.6 % (0.0-0.8); Eosinophils # 0.2 10*3/uL (0.0-0.87); Eosinophils % 3.6 % (0.00-10.9); Hematocrit 31.8 VOL% (35.7-47.0); Immature Granulocytes % 0.6 %; Immature Granulocytes Absolute 0.03 #; Lymphocytes # 0.9 10*3/uL (1.4-4.0); Lymphocytes % 18.8 % (21.3-54.2); Mean Corpuscular HGB Conc 31.4 GM/DL (32-36); Mean Corpuscular Volume 94.9 FL (87-102); Mean Platelet Volume 8.8 FL (9.6-12.0); Monocytes % 8.9 % (1.7-12.7); Neutrophils % 67.5 % (38.7-73.9); Platelet Count 206 T/CUMM (130-400); Red Blood Count 3.35 MC/CUMM (3.8-5.5); Red Cell Distribution Width 16.7 % (9.3-17.3)
[2019-10-02 11:12] VITALS: BP 148/67
== END 2019-10-02 12:47 | disposition home or self-care (01) | DRG 378 ==
LOC: EDBD → EDUNIT# → N.ED 01:44 → N.EDINP 03:54 → SUATTDRO 03:55 → N.ICU 04:15 → N.5E 09-29 13:15
PROVIDERS: ADMIT Family Medicine; ATTEND Internal Medicine Cardiovascular Disease